=== PATIENT | female | born 1975 | race Caucasian/White ===

== ENCOUNTER 2017-05-01 16:21 | Emergency (ER) | payer BC, OTHER ==
[~2017-05-01] VITALS: Ht 170.2 cm; Wt 90.7 kg
--- NOTE | ~2017-05-01 | EKG ---
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: Godfrey ANDERSON : 1975 Requested By: Jeannine Hernandez Order Number: [id number] MD: Gabriele Schneider Measurements Intervals [place] Rate: 62 P: 40 NE: 132 QRS: 63 QRSD: 99 T: 37 QT: 409 QTc: 416 Interpretive Statements Sinus rhythm No significant abnormality No previous ECG available for comparison Electronically Signed On 05-02-2017 8:46:05 [employer]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
[~2017-05-01 16:21] MED LIST: 24HOUR ALLERGY10 MG PO; KLOR-CON M2020 MEQ PO; LAMICTAL100 MG PO; LASIX 80 MG TAB80 MG PO; LATUDA80 MG PO; OLANZAPINE2.5 MG PO; PROZAC 20 MG20 MG PO; REVIA 50 MG TAB50 M1 PO
[2017-05-01] MEDS ORDERED: XANAX 0.25 MG0.25 MG PO (16:46)
== END 2017-05-01 17:00 ==
LOC: ER 16:21
DX: F41.0 Panic disorder [episodic paroxysmal anxiety] (principal); F31.9 Bipolar disorder, unspecified; F17.210 Nicotine dependence, cigarettes, uncomplicated; Z88.1 Allergy status to other antibiotic agents; Z88.6 Allergy status to analgesic agent; Z91.040 Latex allergy status; Z88.2 Allergy status to sulfonamides; Z88.8 Allergy status to other drugs, medicaments and biological substances

== ENCOUNTER 2017-06-08 23:22 | Emergency (ER) | payer BC, OTHER ==
[~2017-06-08] VITALS: Ht 170.2 cm; Wt 90.7 kg
[~2017-06-08 23:22] MED LIST changes: +XANAX 0.25 MG0.25 MG PO
[2017-06-09] MEDS ORDERED: COMPAZINE10 MG PO (00:53)
== END 2017-06-09 01:22 | disposition home or self-care (01) ==
LOC: ER 23:22
DX: R51 Headache (principal); F31.9 Bipolar disorder, unspecified; F17.210 Nicotine dependence, cigarettes, uncomplicated; Z88.1 Allergy status to other antibiotic agents; Z91.040 Latex allergy status; Z88.8 Allergy status to other drugs, medicaments and biological substances